=== PATIENT | male | born 1955 | race Two or more races ===

== ENCOUNTER 2016-11-11 02:24 | Emergency (ER) | payer MEDICAID ==
--- NOTE | 2016-11-11 02:41 | Emergency Department Record ---
History of Present Illness - General Chief complaint: Lower Extremity Pain Stated complaint: FOOT INFECTION Time Seen by Provider: 11/11/16 02:40 Source: Patient Mode of Arrival: Ambulatory Limitations: No limitations - History of Present Illness Initial comments: The patient is here due to a 4 day hx of a L foot infection. The patient is a diabetic and developed a blister on his L 1st toe which was popped 3 days ago. Since he has developed progressively increasing pain and swelling and redness to the L foot. He denies any SOB, fever, chills, or vomiting. He does state his sugar has been running high lately. MD Complaint: Extremity pain, Extremity swelling Onset/Timin -: Days(s) Location: Left, Foot History of Same: Yes Severity scale (1-10): 2 Quality: Aching - Related Data Home Medications Medication Instructions Recorded Confirmed Last Taken Albuterol Sulfate [Proair Hfa] 8.5 gm IH ASDIR 05/14/14 11/11/16 1 Day Ago Aspirin, Regular 325 mg PO DAILY 05/14/14 11/11/16 1 Day Ago Carvedilol [Coreg] 25 mg PO BID 05/14/14 11/11/16 1 Day Ago Fluticasone/Salmeterol [Advair 1 each IH ASDIR 05/14/14 11/11/16 1 Day Ago 250-50 Diskus] Furosemide [Lasix] 80 mg PO DAILY 05/14/14 11/11/16 1 Day Ago Insulin Glargine,Hum.rec.anlog 100 unit SQ ASDIR 05/14/14 11/11/16 1 Day Ago [Lantus] Insulin Glulisine [Apidra] 100 unit SQ ASDIR 05/14/14 11/11/16 1 Day Ago Lisinopril 40 mg PO DAILY 05/14/14 11/11/16 1 Day Ago Metformin HCl 500 gm PO BID 05/14/14 11/11/16 1 Day Ago Nitroglycerin 1 ea TD DAILY 05/14/14 11/11/16 1 Day Ago Potassium Chloride [Klor-Con M20] 20 meq PO DAILY 05/14/14 11/11/16 1 Day Ago Ranitidine HCl [Zantac] 150 mg PO BID 05/14/14 11/11/16 1 Day Ago Simvastatin [Zocor] 40 mg PO DAILY 05/14/14 11/11/16 1 Day Ago Tramadol HCl [Ultram] 50 mg PO ASDIR PRN 05/14/14 11/11/16 1 Day Ago Warfarin Sodium 2.5 mg PO ASDIR 05/14/14 11/11/16 1 Day Ago Hydroxyzine HCl [Atarax] 25 mg PO QID PRN 09/28/14 11/11/16 1 Day Ago Previous Rx's Medication Instructions Recorded Hydrocodone/Acetaminophen [Ty Ty 1 tab PO Q6H PRN #20 tab 07/06/15 5mg/325mg] Hydrocodone/Acetaminophen [Ty Ty 1 - 2 each PO QID #20 tablet 07/16/15 5mg/325mg] Allergies Allergy/AdvReac Type Severity Reaction Status Date / Time kiwi Allergy HIVES Verified 11/11/16 02:39 Travel Screening - Travel/Exposure Within Last 30 Days Have you traveled within the last 30 days?: No - Travel/Exposure Within Last Year Have you traveled outside the [place] in the last year?: No - Additonal Travel Details Have you been exposed to anyone with a communicable illness?: No - Travel Symptoms Symptom Screening: None Review of Systems Constitutional: Denies: Chills, Fever Eyes: Denies: Eye discharge ENT: Denies: Congestion Respiratory: Denies: Cough, Dyspnea Past Medical History - SOCIAL HISTORY Smoking Status: Former smoker Alcohol Use: None Drug Use: None - RESPIRATORY Hx Respiratory Disorders: Yes Hx Asthma: Yes Hx COPD: Yes Hx Pneumonia: Yes (07/27/2014 with an admission) Hx Sleep Apnea: Yes Hx of CPAP: Yes - CARDIOVASCULAR Hx Cardio Disorders: Yes Hx Cardiac Cath: Yes (stent placed) Hx Heart Attack: Yes Hx Hypertension: Yes Hx Pacemaker/Defib: Yes Comment:: hypercholesteremia/slow heart rate, AICD - NEURO Hx Neuro Disorders: No - GI Hx GI Disorders: No Comment:: Pt reports hx of blood in stool r/t hard BM's - Hx Genitourinary Disorders: No - ENDOCRINE Hx Endocrine Disorders: Yes Hx Diabetes: Yes Hx Thyroid Disease: No - MUSCULOSKELETAL Hx Musculoskeletal Disorders: Yes Hx Arthritis: Yes Hx Back Injury: Yes - PSYCH Hx Psych Problems: No - HEMATOLOGY/ONCOLOGY Hx Hematology/Oncology Disorders: No Family Medical History Any Significant Family History?: Yes Hx Diabetes: Father, Mother, Brother/Sister Hx Heart Disease: Father, Mother, Children Hx Resp Disorders: Children Physical Exam - General General Appearance: Alert, Oriented x3, Cooperative, No acute distress - Head Head exam: Atraumatic, Normocephalic, Normal inspection - Eye Eye exam: Normal appearance, PERRL - ENT Throat exam: Normal inspection. negative: Tonsillar erythema, Tonsillar exudate - Neck Neck exam: Normal inspection, Full ROM. negative: Tenderness - Respiratory Respiratory exam: Normal lung sounds bilaterally. negative: Respiratory distress - Cardiovascular Cardiovascular Exam: Regular rate, Normal rhythm, Normal heart sounds - GI/Abdominal GI/Abdominal exam: Soft, Normal bowel sounds. negative: Tenderness - Extremities Extremities exam: Pedal edema, Tenderness, Other (There is erythema progressing to the distal lower leg.). negative: Normal inspection (The L foot is edematous , erythematous, with a black 1st toe and an odor of infection which is present.) , Full ROM, Joint swelling - Neurological Neurological exam: Abnormal gait, Alert, Oriented X3. negative: Altered, Motor sensory deficit, Normal gait Course Vital Signs 11/11/16 02:30 Temperature 97.8 F Pulse Rate 84 Respiratory 18 Rate Blood Pressure 161/73 Pulse Ox 86 L - Reevaluation(s) Reevaluation #1: I did discuss the issues with the patient and the fact he will need a larger hospital due to his illness and he stated he would like to go to [facility]. Due to the nature of the patient's illness and the gas on the xray I did discuss the case with the ER doctor at [facility]. I discussed the extent of the illness with Dr. Novak and she did accept the patient in an ER to ER transfer. 11/11/16 03:23 11/11/16 03:37 Reevaluation #2: I did discuss the case with the Dr. Novak again due to the patient's Glucose being 980. We will start him on Normal Saline and will give 5 units of Regular insulin IV. She will recheck the sugar there in the ER and provide further insulin at that time. 11/11/16 03:38 Medical Decision Making - Data Complexity MDM Data: Labs Ordered and/or Reviewed, X-Ray Ordered and/or Reviewed - Lab Data Result diagrams: 11/11/16 02:37 11/11/16 02:37 - Radiology Data Radiology results: Report reviewed (CXR: CMG, Neg CHF L Foot: gas gangrene in the L foot ) Disposition Disposition: Transfer Clinical Impression: Gas gangrene Disposition: Acute Care Hospital Transfer Transfer To: [facility] ED Reason For Transfer: Gas Gangrene Accepting Physician: Kishore Time Discussed w/Accepting Physician: 03:26 Condition: (2) Stable Forms: Patient Portal Access Time of Disposition: 03:26
[2016-11-11] MEDS ORDERED: AMPICILLIN SODIUM/SULBACTAM NA 3 G in 0.9 % SODIUM CHLORIDE 100ML 100 ML IVPB ONE (02:51)
[2016-11-11] MEDS ORDERED: ONDANSETRON HCL IV 4 MG/2 ML VIAL IVP ONE (03:03)
[2016-11-11 03:05] LABS: HEMATOCRIT 39.7 % (42.0-52.0); HEMOGLOBIN 12.8 gm/dl (14.0-18.0); MEAN CELL VOLUME 86.5 fl (81-97); MEAN CORPUSCULAR HGB CONC 32.2 g/dl (32-36); MEAN PLATELET VOLUME 12.4 fl (7.4-10.4); PLATELET COUNT 251 K/uL (130-400); RED BLOOD COUNT 4.59 M/uL (4.40-5.70); RED CELL DISTRIBUTION WIDTH 12.6 % (11.5-14.5); WHITE BLOOD COUNT W/O DIFF 15.9 K/uL (4.2-12.2)
[2016-11-11 03:08] LABS: MEAN CORPUSCULAR HEMOGLOBIN 27.8 pg (27-33)
[2016-11-11 03:21] LABS: INR 1.04; PARTIAL THROMBOPLASTIN TIME 34.3 SECONDS (24.5-39.1); PROTHROMBIN TIME (PATIENT) 11.7 SECONDS (9.5-12.1)
[2016-11-11 03:24] LABS: BLOOD UREA NITROGEN 34 mg/dL (9-20); CREATININE 1.5 mg/dL (0.66-1.25); EST GLOMERULAR FILTRATION RATE 51 ml/min
[2016-11-11] MEDS ORDERED: 0.9 % SODIUM CHLORIDE 1,000 ML BAG IV ONE (03:25)
[2016-11-11] MEDS ORDERED: 0.9 % SODIUM CHLORIDE 1000ML 1,000 ML IV ONE (03:25)
[2016-11-11 03:31] LABS: GLUCOSE,RANDOM 980 mg/dL (70-110)
[2016-11-11] MEDS ORDERED: HUMULIN R 100 UNIT/ML VIAL IV ONE (03:31)
[2016-11-11] MEDS ORDERED: HUMULIN R 100 UNIT/ML VIAL SC ONE (03:31)
[2016-11-11] MEDS ORDERED: VANCOMYCIN HCL 1,000 MG in 0.9 % SODIUM CHLORIDE 250ML 250 ML IVPB ONE (03:35)
[2016-11-11 03:40] LABS: C-REACTIVE PROTEIN > 27.0 mg/dL (0.0-0.9)
== END 2016-11-11 04:09 | disposition short-term general hospital (02) ==
LOC: ER 02:24
DX: E11.52 Type 2 diabetes mellitus with diabetic peripheral angiopathy with gangrene (principal); E11.65 Type 2 diabetes mellitus with hyperglycemia; I10 Essential (primary) hypertension; I25.2 Old myocardial infarction; Z87.891 Personal history of nicotine dependence; Z79.4 Long term (current) use of insulin; Z79.84 Long term (current) use of oral hypoglycemic drugs; Z95.810 Presence of automatic (implantable) cardiac defibrillator
CPT/HCPCS: 99285 ×2; 96365; 96366; 96375; 85730; 85610; 86140; 80048; 85027; 71010; 73620; J0295; J2405; J3370; J1815; J7030; J7050